=== PATIENT | male | born 1960 | race Caucasian/White ===

== ENCOUNTER 2018-12-28 09:05 | Day surgery (SDC) | payer BC ==
--- NOTE | 2018-12-27 11:06 | RAD REPORT ---
EXAM DESCRIPTION: Myke Davis (2 Views)12/27/2018 10:45 am CLINICAL HISTORY: Hypertension/preop for cardiac catheterization COMPARISON: 2016 FINDINGS: The lungs appear clear of acute infiltrate. The heart is mildly enlarged IMPRESSION: No acute abnormalities displayed
[2018-12-27 11:13] LABS: Absolute Lymphocytes (CBC) 1.7 K/uL (0.7-4.9); Basophils % 1.4 % (0-1.3); Eosinophils % 4.1 % (0-4.4); Hematocrit 45.9 % (39.6-49.0); Lymphocytes % 32.5 % (15.3-44.8); MPV 8.4 fL (7.6-11.3); Monocytes % 9.2 % (3.3-12.3); RBC Red Blood Cell Count 5.07 M/uL (4.33-5.43)
[2018-12-27 11:25] LABS: Protime INR 0.94
[2018-12-27 11:46] LABS: BUN Blood Urea Nitrogen 15 mg/dL (7-18); Bicarbonate 29 mmol/L (21-32); Glucose Level 160 mg/dL (74-106); Sodium Level 138 mmol/L (136-145)
[2018-12-28] MEDS ORDERED: NA CHLORIDE 0.9% 500 ML ONE (09:47)
[2018-12-28] MEDS ORDERED: ATROPINE SULF 1 MG/10 ML SYR IV ONE (11:25)
[2018-12-28] MEDS ORDERED: MIDAZOLAM HCL 2 MG/2 ML INJ ONE ×2 (11:25→11:59)
[2018-12-28] MEDS ORDERED: LIDOCAINE 1% MPF 30 ML VIAL ONE (11:25)
[2018-12-28] MEDS ORDERED: FENTANYL CITR 100 MCG/2 ML ONE (11:25)
[2018-12-28] MEDS ORDERED: NA CHLORIDE 0.9% 0 ML ONE ×2 (11:25→12:04)
[2018-12-28] MEDS ORDERED: NITROGLYCERIN/D5W 25 MG/250 ML BTL IV ONE (12:20)
[2018-12-28] MEDS ORDERED: NITROGLYCERIN 100 MCG/ML SYR (for cath lab use only) IV ONE (12:21)
[2018-12-28] MEDS ORDERED: ASPIRIN 325 MG TAB ONE (12:22)
[2018-12-28] MEDS ORDERED: PRASUGREL (EFFIENT) 10 MG TAB ONE (12:22)
--- NOTE | 2018-12-28 12:58 | OP ---
Surgeon: Hieu Rojas MD Senior Functional Analyst: Yamila Mcnamara. 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 Indication: He is a 58-year-old. He has had a history of LAD stent in the past. He has new onset c hest pain and positive stress test. His last stent was in 2016. He was brought today to the cath la b as an outpatient. Procedure: He had heart catheterization, selective coronary arteriogram, and primary LAD stent. Procedure In Detail: The patient was prepped and draped in the routine sterile fashion, given 4 mg o f Versed for sedation. A 6-[place] sheath was used in the right common femoral artery. Angio-Seal wa s used to close the case. Angiography with Jaymie catheter revealed a 70% OM lesion, normal RCA, wh ich was dominant, a patent mid LAD stent, but he had a 90% ostial LAD stent with PETR 2 flow. An XB LAD 3.5 with side hole guide was used to cannulate the left main. A [place] wire 0.014 extra length a nd extra-support was used to cross the lesion successfully. A Synergy stent 3.0 x 16 was deployed at 17 atmosphere with 0% residual PETR-3 flow. There were no complications. Blood loss was 5 cc. The patient received Angiomax, aspirin and Effient during the procedure. Postoperative Diagnosis: Coronary artery disease status post primary LAD stent successful. Plan: The plan is to continue aspirin, Effient, and statin and beta rico at home. He will go [place]orge [facility] tomorrow. He will stay here overnight. Anesthesia: Total conscious sedation was 45 minutes. ROGER/ASHOK Voice ID: [id number] Report ID: [id number]
[2018-12-28] MEDS ORDERED: ACETAMINOPHEN 325 MG TABLET PO PRN ×2 (14:07→19:02)
[2018-12-28] MEDS ORDERED: NITROGLYCERIN 0.4 MG/TAB SL PRN (14:07)
[2018-12-28] MEDS ORDERED: NA CHLORIDE 0.9% 1,000 ML IV SCH (15:00)
[2018-12-28 19:48] LABS: Urine Appearance CLOUDY; Urine Bilirubin NEGATIVE (NEG); Urine Blood NEGATIVE (NEG); Urine Color YELLOW; Urine Glucose NEGATIVE (NEG); Urine Protein NEGATIVE (NEG); Urine pH 7.5 (5.0-7.0)
[2018-12-28 20:59] LABS: Urine Amorphous Sediment 3+ /HPF (NONE SEEN); Urine Bacteria <20 /HPF (NONE SEEN); Urine Culture Reflex Order NOT NEEDED; Urine RBC NONE SEEN /HPF (NONE SEEN)
[2018-12-28] MEDS ORDERED: ATORVASTATIN 20 MG TAB PO SCH (21:00)
[2018-12-29 06:10] LABS: Absolute Lymphocytes (CBC) 1.7 K/uL (0.7-4.9); Basophils % 1.5 % (0-1.3); Eosinophils % 4.8 % (0-4.4); Hematocrit 42.4 % (39.6-49.0); MPV 8.5 fL (7.6-11.3); Monocytes % 10.3 % (3.3-12.3); RBC Red Blood Cell Count 4.69 M/uL (4.33-5.43)
[2018-12-29 06:23] LABS: BUN Blood Urea Nitrogen 14 mg/dL (7-18); Bicarbonate 27 mmol/L (21-32); Glucose Level 133 mg/dL (74-106); HDL Cholesterol 27 mg/dL (40-60); LDL Cholesterol, Calculated ND (<130); Potassium 4.1 mmol/L (3.5-5.1); Sodium Level 139 mmol/L (136-145)
[2018-12-29 06:37] LABS: LDL, Direct 133 mg/dL (100-129)
[2018-12-29] MEDS ORDERED: ASPIRIN EC 81 MG TAB PO SCH (09:00)
[2018-12-29] MEDS ORDERED: CLOPIDOGREL 75 MG TABLET PO SCH (09:00)
[2018-12-29] MEDS ORDERED: METOPROLOL XL 25 MG TAB PO SCH (09:00)
--- NOTE | 2018-12-29 11:08 | EKG ---
Test Date: 2018-12-29 Test Time: 07:42:43 Body Designer: ANDRY MEASUREMENT RESULTS: Intervals: Rate: 59 MD: 172 QRSD: 78 QT: 422 QTc: 417 [place]: P: 45 MD: 172 QRS: -13 T: 59 INTERPRETIVE STATEMENTS: Sinus bradycardia Low voltage QRS Inferior infarct, age undetermined Cannot rule out Anteroseptal infarct, age undetermined Abnormal ECG Compared to ECG 11/25/2015 06:05:10 Low QRS voltage now present Sinus rhythm no longer present Myocardial infarct finding still present Electronically Signed On 12-29-18 11:06:53 CDT by Hieu Rojas
[2018-12-29 18:55] VITALS: BP 184/101; TEMP 97.6; O2SAT 97
[2018-12-29 19:27] VITALS: BMI 30.7
== END 2018-12-29 09:25 | disposition home or self-care (01) ==
LOC: CCL 09:05 → 4TH 13:40 → CCL 12-29 09:25
PROC: B201YZZ Plain Radiography of Multiple Coronary Arteries using Other Contrast (ICD-10-PCS; principal; 2018-12-28)
PROC: 027034Z Dilation of Coronary Artery, One Artery with Drug-eluting Intraluminal Device, Percutaneous Approach (ICD-10-PCS; 2018-12-28)
DX: I25.10 Atherosclerotic heart disease of native coronary artery without angina pectoris (principal); R07.9 Chest pain, unspecified; I10 Essential (primary) hypertension; E78.5 Hyperlipidemia, unspecified; Z95.5 Presence of coronary angioplasty implant and graft
CPT/HCPCS: 36415; 71046; 80048; 80061; 81001; 85025; 85347; 85610; 85730; 92928; 93005; 93454; C1725; C1760; C1877; C1893; J0583; J2250; J3010; J7030

== ENCOUNTER 2024-06-27 12:23 | Day surgery (SDC) | payer BC ==
[2024-06-23 13:35] LABS: Absolute Basophils 0.1 K/uL (0-0.5); Absolute Eosinophils 0.3 K/uL (0-0.5); Absolute Lymphocytes (CBC) 1.8 K/uL (0.7-4.9); Absolute Monocytes 0.4 K/uL (0.1-1.3); Absolute Neutrophil 3.7 K/uL (1.8-8.0); Basophils % 1.4 % (0-1.3); Eosinophils % 4.8 % (0-4.4); Hematocrit 44.1 % (39.6-49.0); Hemoglobin 14.7 g/dL (13.6-17.9); MCH 29.9 pg (27.0-35.0); MCHC 33.2 g/dL (32.0-36.0); MPV 8.2 fL (7.6-11.3); Neutrophils % 58.8 % (41.7-73.7); Platelets 221 thou/uL (152-406)
[2024-06-23 13:44] LABS: PT Prothrombin Time 10.4 SECONDS (9.4-12.5); PTT, Activated Partial Thromb 32.7 SECONDS (24.3-36.9); Protime INR 0.93
[2024-06-23 13:46] LABS: Anion Gap 6.8 mEq/L (5.0-15.0); Potassium 3.8 mEq/L (3.5-5.1)
--- NOTE | 2024-06-23 14:06 | RAD REPORT ---
EXAMINATION: TWO VIEW CHEST XR CLINICAL INDICATION: Pre-op pending heart cath TECHNIQUE: 2 views of the chest was performed. COMPARISON: 12/27/2018 FINDINGS: The lungs are well inflated and clear. The heart is upper limit of normal in size. No displaced fract ures evident. IMPRESSION: No acute or significant abnormalities.
--- NOTE | 2024-06-24 13:37 | EKG ---
Test Date: 2024-06-23 Test Time: 14:15:55 Toll Patrolman: SELMA MEASUREMENT RESULTS: Intervals: Rate: 69 MN: 168 QRSD: 74 QT: 410 QTc: 439 [place]: P: 64 MN: 168 QRS: 26 T: 53 INTERPRETIVE STATEMENTS: Normal sinus rhythm Low voltage QRS Cannot rule out Anteroseptal infarct, age undetermined Abnormal ECG Compared to ECG 12/29/2018 07:42:43 Sinus bradycardia no longer present Myocardial infarct finding still present Electronically Signed On 06-24-24 13:35:50 HEEL PACKER by Willis Dennis
[2024-06-27] MEDS ORDERED: NA CHLORIDE 0.9% 500 ML ONE (12:25)
[2024-06-27] MEDS ORDERED: HEPA 1000U/500MLS 2,000 UNIT/1,000 ML BAG IV ONE (12:39)
[2024-06-27] MEDS ORDERED: HEPARIN 10,000 UNIT/10 ML VIAL IV ONE (12:39)
[2024-06-27] MEDS ORDERED: ATROPINE SULF 1 MG/10 ML SYR IV ONE (12:40)
[2024-06-27] MEDS ORDERED: LIDOCAINE 1% 20 ML MDV ONE (12:40)
[2024-06-27] MEDS ORDERED: CLOPIDOGREL 75 MG TABLET ONE (12:40)
[2024-06-27] MEDS ORDERED: MIDAZOLAM HCL 2 MG/2 ML INJ ONE (12:40)
[2024-06-27] MEDS ORDERED: FENTANYL CITR 100 MCG/2 ML ONE (12:41)
[2024-06-27] MEDS ORDERED: ASPIRIN 325 MG TAB ONE (12:41)
[2024-06-27] MEDS ORDERED: TICAGRELOR 90 MG TABLET PO ONE (12:41)
[2024-06-27] MEDS ORDERED: HEPARIN 5000 UNIT/ML 1 ML VIAL ONE (12:41)
[2024-06-27] MEDS ORDERED: VERAPAMIL HCL 10 MG/4 ML VIAL IV ONE (12:42)
--- NOTE | 2024-06-27 14:47 | OP ---
Date of Procedure: 06/27/2024 Surgeon: RORY MONTERO Procedures Performed: 1.Selective coronary angiogram. 2.Left heart catheterization. Indication: Chest pain with abnormal stress test suggestive of unstable angina. Access: Right radial artery 6-Greek closed with TR band. Complications: None. Bleeding: Less than 50 mL. Anesthesia: Total sedation time is 45 minutes. Used fentanyl and Versed. Description Of Procedure: After risks, benefits, and alternatives were explained, the patient agreed to procedure and signed informed consent. The patient was brought into cardiac catheterization [facility], prepped and draped in usual sterile fashion. Then, I accessed right radial artery using pedi atric micropuncture kit and ultrasound guidance, placed 6-Greek Slender sheath and took 5-Greek Tig er 4.0 catheter into aortic root over a J-wire across the aortic valve, measured the LVEDP. Pullback did not record any gradient, then engaged the left main, took standard views and then in the RCA, to ok standard views and removed the catheter and the sheath, placed TR band with good hemostasis. Findings: 1.Left main is normal. 2.LAD; proximal LAD stent with severe in-stent restenosis and 90% diffusely. Distal to stent, there is focal 99% stenosis with PETR-1 flow in the LAD. Diagonal branch has proximal 90% stenosis. 3.Left circumflex is small, but the OM is large and has proximal 80% stenosis. 4.RCA; large and dominant, proximal 60% to 70%, distal 60% stenosis. 5.LVEDP normal at 7 mmHg. Conclusion: Severe multivessel coronary artery disease with normal LVEDP. Recommendation: Transfer for coronary artery bypass surgery. SR/MODL Voice ID: [id number] Report ID: [id number]
[2024-06-27 15:42] VITALS: BP 134/93; O2SAT 96
== END 2024-06-27 15:55 | disposition short-term general hospital (02) ==
LOC: CCL 12:23
PROVIDERS: ATTEND Internal Medicine
DX: I25.110 Atherosclerotic heart disease of native coronary artery with unstable angina pectoris (principal); T82.855A Stenosis of coronary artery stent, initial encounter; I65.22 Occlusion and stenosis of left carotid artery; I10 Essential (primary) hypertension; E78.2 Mixed hyperlipidemia; Z79.82 Long term (current) use of aspirin; Z79.899 Other long term (current) drug therapy
CPT/HCPCS: 93005; 85025; 80048; 36415; 85610; 85730; 71046; 93458; 76937; C1893; Q9966; J1644; J2003; J2250; J3010; J7040; 99152; J0461